=== PATIENT | female | born 1990 | race Caucasian/White ===

== ENCOUNTER 2016-12-01 17:38 | Emergency (ER) | payer BC ==
[~2016-12-01] VITALS: Wt 62.0 kg
[2016-12-01] MEDS ORDERED: IBUP-1542 PO (17:53)
[2016-12-01] MEDS ORDERED: IBUPROFEN 800 MG TAB PO ONE (18:00)
[2016-12-01] MEDS ORDERED: PRENAT PO (18:08)
--- NOTE | 2016-12-01 19:22 | ERD ---
ER Documentation Chief Complaint Date/Time DATE: 12/01/16 TIME: 19:18 Chief Complaint R THUMB PAIN X 3 MONTHS HPI Patient is a 26-year-old female with no medical problems who presents with right -sided thumb pain. The patient has had this pain for the past few months. She says that it hurts when she hits her thumb on anything. She has had no significant trauma recently however. She is right-handed. She tried Advil 1 pill yesterday. She has a baby who is 3 months old. She is currently breast- feeding. She called her primary doctor but there was no appointment available until December. Upon review of old medical records this is the patient's eighth visit to the ER since 2007. ROS All systems reviewed and are negative except as per history of present illness. Medications Home Meds Active Scripts Ibuprofen* (Motrin*) 600 Mg Tab, 600 MG PO Q6H Y for PAIN AND OR ELEVATED TEMP, #30 TAB Prov:ALPHONSE GARSIA MD 12/01/16 Reported Medications Multivit/Min/Fol Ac/Iron/Pren* ( S*) 1 Tab Tab, 1 TAB PO DAILY, TAB 12/01/16 Allergies Allergies: Coded Allergies: No Known Drug Allergy (Verified Allergy, Mild, 12/01/16) PMhx/Soc Medical and Surgical Hx: pt denies Medical Hx, pt denies Surgical Hx History of Surgery: No Anesthesia Reaction: No Hx Neurological Disorder: No Hx Respiratory Disorders: No Hx Cardiac Disorders: No Hx Psychiatric Problems: No Hx Miscellaneous Medical Probl: No Hx Alcohol Use: No Hx Substance Use: No Hx Tobacco Use: No Smoking Status: Never smoker FmHx Family History: diabetes Physical Exam Vitals Vital Signs Date Time Temp Pulse Resp B/P Pulse Ox O2 Delivery O2 Flow Rate FiO2 12/01/16 17:43 98.0 78 18 128/66 99 Physical Exam Const: No acute distress Head: Atraumatic Eyes: Normal Conjunctiva ENT: Normal External Ears, Nose and Mouth. Neck: Full range of motion..~ No meningismus. Resp: Clear to auscultation bilaterally Cardio: Regular rate and rhythm, no murmurs Abd: Soft, non tender, non distended. Normal bowel sounds Skin: No petechiae or rashes Back: No midline or flank tenderness Ext: Pain over the extensor tendon of the thumb, positive Claudia's test on the right Neur: Awake and alert Psych: Normal Mood and Affect Results 24 hrs Current Medications Medications (Trade) Dose Ordered Sig/Froylan Route PRN Reason Start Time Stop Time Status Last Admin Dose Admin Ibuprofen (Motrin) 800 mg ONCE ONCE PO 12/01/16 18:00 12/01/16 18:01 DC 12/01/16 17:55 Procedures/MDM Patient is a 26-year-old female presents with appears to be acute de Quervain's tenosynovitis. The patient had a positive Claudia's test. She is otherwise well-appearing. There is no sign of fracture or dislocation. There is no sign of infection. The patient will be discharged home and can follow-up with her primary doctor within 1 week. The patient be given a prescription for ibuprofen. The patient can return for any worsening symptoms. Splint Note Type: Thumb spica splint Location: Right upper extremity Indication: De Quervain's tenosynovitis Splint Assessment: Neurovascularly intact post splint placement with good fit. Departure Diagnosis: Primary Impression: De Quervain's disease (tenosynovitis) Condition: Fair Patient Instructions: What Is De Quervain Tenosynovitis? Additional Instructions: Call your primary care doctor TOMORROW for an appointment during the next 1 WEEK.Tell the city secretary that you were referred from this facility.See the doctor sooner or return here if your condition worsens before your appointment time. ALPHONSE GARSIA MD Dec 01, 2016 19:22
== END 2016-12-01 18:06 | disposition home or self-care (01) ==
LOC: E/R 17:38
DX: M65.4 Radial styloid tenosynovitis [de Quervain] (principal)

== ENCOUNTER 2017-09-19 08:56 | Emergency (ER) | payer BC ==
[~2017-09-19] VITALS: Wt 59.1 kg
[~2017-09-19 08:56] MED LIST: IBUP-1542 PO; PRENAT PO
[2017-09-19] MEDS ORDERED: BENZ100C70 PO (09:44)
[2017-09-19] MEDS ORDERED: IBUP-1542 PO (09:44)
--- NOTE | 2017-09-19 09:52 | ERD ---
ER Documentation Chief Complaint Chief Complaint Cough, sore throat HPI 27-year-old female presents emergency room with 2 day history of cough, sore throat, rhinorrhea and fever. Patient states she has had a dry cough, painful swallowing but no difficulty handling his secretions. She reports nasal rhinorrhea as well as voice hoarseness. She has been taking Tylenol as well as Robitussin for her symptoms. She works in the hospital, she is a community development worker in telemetry care. ROS All systems reviewed and are negative except as per history of present illness. Medications Home Meds Active Scripts Benzonatate* (Tessalon Perle*) 100 Mg Capsule, 100 MG PO Q8H Y for COUGH, #30 CAP Prov:SHAAN GLORIA PA-C 09/19/17 Ibuprofen* (Motrin*) 600 Mg Tab, 600 MG PO Q6, #30 TAB Prov:SHAAN GLORIA PA-C 09/19/17 Ibuprofen* (Motrin*) 600 Mg Tab, 600 MG PO Q6H Y for PAIN AND OR ELEVATED TEMP, #30 TAB Prov:ALPHONSE GARSIA MD 12/01/16 Reported Medications Multivit/Min/Fol Ac/Iron/Pren* ( S*) 1 Tab Tab, 1 TAB PO DAILY, TAB 12/01/16 Allergies Allergies: Coded Allergies: No Known Drug Allergy (Verified Allergy, Mild, 09/19/17) PMhx/Soc History of Surgery: No Anesthesia Reaction: No Hx Neurological Disorder: No Hx Respiratory Disorders: No Hx Cardiac Disorders: No Hx Psychiatric Problems: No Hx Miscellaneous Medical Probl: No Hx Alcohol Use: No Hx Substance Use: No Hx Tobacco Use: No Physical Exam Vitals Vital Signs Date Time Temp Pulse Resp B/P Pulse Ox O2 Delivery O2 Flow Rate FiO2 09/19/17 09:03 98.2 71 18 125/71 99 Physical Exam General: Well-developed, well-nourished. The patient appears in no acute distress. HEENT: Head is normocephalic, atraumatic. No scleral icterus. Pupils are equal , round, and reactive. Oral mucous membranes are moist. Pharyngeal erythema, and there is no exudate, surgically missing tonsils. Neck: Supple. Right anterior cervical lymphadenopathy but no tenderness, no masses. Lungs: Clear to auscultation. Normal air movement. Heart: Regular rate and rhythm. S1 and S2 are normal. No murmurs, gallops, or rubs. Abdomen: Soft, nontender, nondistended. Bowel sounds are normoactive. Extremities: No clubbing or cyanosis. Normal pulses. Moving extremities x 4. No weakness. Neurologic: Alert and oriented 3. No focal deficits. Skin: Normal turgor. No rash or lesions. Procedures/MDM The patient is a 7-year-old female who comes in with an acute upper respiratory infection, presumed viral. Patient does not show any signs of a bacterial infection, the vitals are normal and no signs of hypoxia or respiratory distress. The patient has a differential diagnosis of a viral upper respiratory infection, bacterial upper respiratory infection, bronchitis, pneumonia, pharyngitis, laryngitis, epiglottitis, croup, pneumonia. Patient has a normal pulmonary examination, clear breath sounds, normal pulse oximetry, with no corrective measures needed at this time. Fluids, rest, antipyretics were encouraged. Departure Diagnosis: Primary Impression: URI (upper respiratory infection) Condition: Good Patient Instructions: Uri, Viral, No Abx (Adult) SHAAN GLORIA PA-C Sep 19, 2017 09:52
== END 2017-09-19 10:18 | disposition home or self-care (01) ==
LOC: FTE 08:56
DX: J06.9 Acute upper respiratory infection, unspecified (principal)
CPT/HCPCS: 99283

== ENCOUNTER 2018-11-23 17:38 | Emergency (ER) | payer BC ==
[~2018-11-23] VITALS: Ht 152.4 cm; Wt 61.3 kg
[~2018-11-23 17:38] MED LIST changes: +BENZ-6 PO
[2018-11-23 17:47] VITALS: Ht 152.4 cm; Wt 61.3 kg
[2018-11-23] MEDS ORDERED: IBUPROFEN 600 MG TAB PO ONE (18:30)
[2018-11-23] MEDS ORDERED: NITR-58 PO (21:08)
--- NOTE | 2018-11-23 21:09 | ERD ---
ER Documentation Chief Complaint Chief Complaint Pelvic pain radiating to R lower back, dysuria X 1 day ROS All systems reviewed and are negative except as per history of present illness. Medications Home Meds Active Scripts Nitrofurantoin Monohyd Macrocr* (Macrobid*) 100 Mg Capsr, 100 MG PO BID for uti for 5 Days, #10 CAP Prov:TENZIN HANSON DO 11/23/18 Benzonatate* (Tessalon Perle*) 100 Mg Capsule, 100 MG PO Q8H PRN for COUGH, #30 CAP Prov:SHAAN GLORIA PA-C 09/19/17 Ibuprofen* (Motrin*) 600 Mg Tab, 600 MG PO Q6, #30 TAB Prov:SHAAN GLORIA PA-C 09/19/17 Ibuprofen* (Motrin*) 600 Mg Tab, 600 MG PO Q6H PRN for PAIN AND OR ELEVATED TEMP, #30 TAB Prov:ALPHONSE GARSIA MD 12/01/16 Reported Medications Multivit/Min/Fol Ac/Iron/Pren* ( S*) 1 Tab Tab, 1 TAB PO DAILY, TAB 12/01/16 Allergies Allergies: Coded Allergies: No Known Drug Allergy (Verified Allergy, Mild, 09/19/17) PMhx/Soc Medical and Surgical Hx: pt denies Medical Hx History of Surgery: No Anesthesia Reaction: No Hx Neurological Disorder: No Hx Respiratory Disorders: No Hx Cardiac Disorders: No Hx Psychiatric Problems: No Hx Miscellaneous Medical Probl: No Hx Alcohol Use: No Hx Substance Use: No Hx Tobacco Use: No Smoking Status: Never smoker Physical Exam Vitals Vital Signs Date Temp Pulse Resp B/P (MAP) Pulse Ox O2 O2 Flow FiO2 Time Delivery Rate 11/23/18 99.4 103 18 135/75 100 17:47 (95) Physical Exam Const: No acute distress Head: Atraumatic Eyes: Normal Conjunctiva ENT: Normal External Ears, Nose and Mouth. Neck: Full range of motion. No meningismus. Resp: Clear to auscultation bilaterally Cardio: Regular rate and rhythm, no murmurs Abd: Soft, non tender, non distended. Normal bowel sounds Skin: No petechiae or rashes Back: No midline or flank tenderness Ext: No cyanosis, or edema Neur: Awake and alert Psych: Normal Mood and Affect Result Diagram: 11/23/18182511/23/181825 Results 24 hrs Laboratory Tests Test 11/23/18 18:25 11/23/18 18:26 Urine Test NEGATIVE White Blood Count 13.7 10^3/ul Red Blood Count 4.26 10^6/ul Hemoglobin 13.3 g/dl Hematocrit 38.8 % Mean Corpuscular Volume 91.1 fl Mean Corpuscular Hemoglobin 31.2 pg Mean Corpuscular Hemoglobin Concent 34.3 g/dl Red Cell Distribution Width 11.0 % Platelet Count 296 10^3/UL Mean Platelet Volume 9.9 fl Immature Granulocytes % 0.200 % Neutrophils % 75.2 % Lymphocytes % 19.8 % Monocytes % 4.2 % Eosinophils % 0.4 % Basophils % 0.2 % Nucleated Red Blood Cells % 0.0 /100WBC Immature Granulocytes # 0.030 10^3/ul Neutrophils # 10.3 10^3/ul Lymphocytes # 2.7 10^3/ul Monocytes # 0.6 10^3/ul Eosinophils # 0.1 10^3/ul Basophils # 0.0 10^3/ul Nucleated Red Blood Cells # 0.0 10^3/ul Urine Color STRAW Urine Clarity SLIGHTLY CLOUDY Urine pH 7.0 Urine Specific [place] 1.005 Urine Ketones NEGATIVE mg/dL Urine Nitrite NEGATIVE mg/dL Urine Bilirubin NEGATIVE mg/dL Urine Urobilinogen NEGATIVE mg/dL Urine Leukocyte Esterase 3+ Tanna/ul Urine Microscopic RBC 5 /HPF Urine Microscopic WBC 150 /HPF Urine Squamous Epithelial Cells MODERATE /HPF Urine Bacteria MODERATE /HPF Urine Hemoglobin 2+ mg/dL Urine Glucose NEGATIVE mg/dL Urine Total Protein NEGATIVE mg/dl Sodium Level 140 mmol/L Potassium Level 3.9 mmol/L Chloride Level 100 mmol/L Carbon Dioxide Level 29 mmol/L Anion Gap 11 Blood Urea Nitrogen 11 mg/dl Creatinine 0.64 mg/dl Est Glomerular Filtrat Rate mL/min > 60 mL/min Glucose Level 105 mg/dl Calcium Level 9.7 mg/dl Total Bilirubin 0.1 mg/dl Direct Bilirubin 0.00 mg/dl Indirect Bilirubin 0.1 mg/dl Aspartate Amino Transf (AST/SGOT) 49 IU/L Alanine Aminotransferase (ALT/SGPT) 44 IU/L Alkaline Phosphatase 73 IU/L Total Protein 8.5 g/dl Albumin 4.7 g/dl Globulin 3.80 g/dl Albumin/Globulin Ratio 1.23 Lipase 139 U/L Current Medications Medications Dose Sig/Froylan Start Time Status Last (Trade) Ordered Route PRN Stop Time Admin Dose Reason Admin Ibuprofen 600 mg ONCE ONCE 11/23/18 DC 11/23/18 (Motrin) PO 18:30 11/23/18 18:32 18:31 Departure Diagnosis: Primary Impression: UTI (urinary tract infection) Condition: Fair Patient Instructions: Understanding Urinary Tract Infections (UTIs) Additional Instructions: Call your primary care doctor TOMORROW for an appointment during the next 1-2 days.See the doctor sooner or return here if your condition worsens before your appointment time. TENZIN HANSON DO Nov 23, 2018 21:09
[2018-11-23 21:16] VITALS: BP 125/78; PULSE 78; RESP 18
== END 2018-11-23 21:18 | disposition home or self-care (01) ==
LOC: FTE 17:38
DX: N39.0 Urinary tract infection, site not specified (principal)
CPT/HCPCS: 36415; 76705; 80053; 81001; 83690; 84703; 85025

== ENCOUNTER 2019-01-20 19:10 | Emergency (ER) | payer BC ==
[~2019-01-20] VITALS: Ht 152.4 cm; Wt 61.6 kg
[~2019-01-20 19:10] MED LIST changes: +NITR-58 PO
[2019-01-20 19:17] VITALS: BP 128/69; PULSE 86; RESP 16; Ht 152.4 cm; Wt 61.6 kg
--- NOTE | 2019-01-20 21:10 | ERD ---
ER Documentation Chief Complaint Chief Complaint R upper back pain x 1 week HPI 28-year-old female with no past medical surgical history who presents with 1 week complaint of right upper back pain. She is carrying heavy bags of groceries and has been having right-sided back pain and arm pain since that time. Tried acupuncture treatment the very next day with only some improvement in symptoms. Has not taken any [id number] pain medications or anti- inflammatories. At time of exam patient is nontoxic appearing and neurovascularly intact able to ambulate without issue. ROS All systems reviewed and are negative except as per history of present illness. Medications Home Meds Active Scripts Nitrofurantoin Monohyd Macrocr* (Macrobid*) 100 Mg Capsr, 100 MG PO BID for uti for 5 Days, #10 CAP Prov:TENZIN HANSON DO 11/23/18 Benzonatate* (Tessalon Perle*) 100 Mg Capsule, 100 MG PO Q8H PRN for COUGH, #30 CAP Prov:SHAAN GLORIA PA-C 09/19/17 Ibuprofen* (Motrin*) 600 Mg Tab, 600 MG PO Q6, #30 TAB Prov:SHAAN GLORIA PA-C 09/19/17 Ibuprofen* (Motrin*) 600 Mg Tab, 600 MG PO Q6H PRN for PAIN AND OR ELEVATED TEMP, #30 TAB Prov:ALPHONSE GARSIA MD 12/01/16 Reported Medications Multivit/Min/Fol Ac/Iron/Pren* ( S*) 1 Tab Tab, 1 TAB PO DAILY, TAB 12/01/16 Allergies Allergies: Coded Allergies: No Known Drug Allergy (Verified Allergy, Mild, 09/19/17) PMhx/Soc History of Surgery: Yes (tonsillectomy) Anesthesia Reaction: No Hx Neurological Disorder: No Hx Respiratory Disorders: No Hx Cardiac Disorders: No Hx Psychiatric Problems: No Hx Miscellaneous Medical Probl: No Hx Alcohol Use: No Hx Substance Use: No Hx Tobacco Use: No FmHx Family History: No diabetes, No coronary disease, No other Physical Exam Vitals Vital Signs Date Temp Pulse Resp B/P (MAP) Pulse Ox O2 O2 Flow FiO2 Time Delivery Rate 01/20/19 99.6 86 16 128/69 98 19:17 (88) Physical Exam I have reviewed the triage vital signs. Const: Well nourished, well developed, appears stated age Eyes: PERRL, no conjunctival injection HENT: NCAT, Neck supple without meningismus CV: RRR, Warm, well-perfused extremities RESP: CTAB, Unlabored respiratory effort GI: soft, non-tender, non-distended, no masses MSK: No gross deformities appreciated, no paraspinal tenderness, normal gait, negative straight leg Skin: Warm, dry. No rashes Neuro: grossly non focal Psych: Appropriate mood and affect. Procedures/MDM 28-year-old female presents with complaint of right upper back pain. Low suspicion for acute cord compression or cauda equina at this time, given presentation and symptoms, including epidural abscess or hematoma. Patient has no history of malignancy, active or distant history. Patient has no unexplained weight loss. No recent fevers, rigors, malaise, or recent infection. No history of IVDU or skin-popping. Patient does not have any history concerning for saddle anesthesia/perianal sensory loss or complaining of decreased rectal tone. Patient does not have urinary retention or inability to control urine from overflow. Patient has no tenderness overlying spinous process. Patient has no focal weakness on examination. ED course; No indication for imaging Toradol Pain control and NSAIDs on discharge Given exam and history, low suspicion for cord compression, cauda equina, epidural abscess/hematoma. Distally neurovascularly intact. Query likely musculoskeletal component. Discussed pain control,and follow up with PMD. Cautious return precautions discussed w/ full understanding Departure Diagnosis: Primary Impression: Back pain Condition: Stable MITESH GRAY PA-C Jan 20, 2019 21:10
[2019-01-20] MEDS ORDERED: KETOROLAC 30 MG INJ IM STA (21:21)
[2019-01-20] MEDS ORDERED: NAPR-985 PO (21:28)
== END 2019-01-20 22:20 | disposition home or self-care (01) ==
LOC: FTE 19:10
DX: M54.6 Pain in thoracic spine (principal)
CPT/HCPCS: 81025; 96372; 99284; J1885